=== PATIENT | female | born 1965 | race Caucasian/White ===

== ENCOUNTER 2018-05-02 09:11 | Emergency (ER) | payer BC ==
--- OUTSIDE RECORDS SUMMARY | 2018-05-02 09:31 | XMS REPORT ---
:1965 External Reference #:[id number] Author Organization [employer] Address [address] [place] [address] Phone [phone] Care Team Providers Name Role Phone Tera Strauss M.D. Primary Care Physician Unavailable Payers Type Date Identification Numbers Payment Provider Subscriber Commercial Policy Number: [id number] BS [employer] Norah Zacarias PayID: [id number] [address] [address] [place] [address] Problems Date Description Provider Status Onset: Sinusitis Active Onset: Irritable bowel syndrome Active Onset: 04/02/2018 Presbyopia Rosaura West O.D. Active Onset: 04/02/2018 Regular astigmatism Rosaura West O.D. Active Onset: 04/02/2018 Myopia Rosaura West O.D. Active Onset: 03/13/2016 Horseshoe retinal tear without Jennifer Alvarado O.D. Active detachment Onset: 03/13/2016 Vitreous degeneration Jennifer Alvarado O.D. Active Onset: 03/14/2015 Pseudophakia Jennifer Alvarado O.D. Active Onset: 03/14/2015 After-cataract with vision obscured Jennifer Alvarado O.D. Active Family History Date Family Member(s) Problem(s) Comments Father Cataract Mother No Current Problems Social History Type Date Description Comments Marital Status Legal Status: Occupation [employer] Work Status Retired ETOH Use Denies alcohol use Smoking Patient has never smoked Recreational Drug Use Denies Drug Use Daily Caffeine Consumes on average 1 cup of regular coffee per day Allergies, Adverse Reactions, Alerts Date Description Reaction Status Severity Comments 03/14/2015 NKDA active Medications Medication Date Status Form Strength Qnty SIG Indications Ordering Provider Sudafed Nasal Active Tablets 30mg as needed Unknown Decongestant 00 Maximum Strength No Active 03/14/20 Hx Unknown Medications 15 - 03/13/20 16 Vital Signs Date Vital Result Comment 03/20/2016 BP Systolic 103 mmHg BP Diastolic 63 mmHg Heart Rate 72 /min Respiratory Rate 16 /min 03/13/2016 BP Systolic 113 mmHg BP Diastolic 68 mmHg Heart Rate 76 /min Respiratory Rate 16 /min Results Description No Information Procedures Date CPT Code Description Status 04/01/2017 72645 Est Patient Comprehensive Exam Completed 03/20/2016 83832 Prophylaxis Of Retinal Detachment, Photocoagulation Completed 03/13/2016 84587 Est Patient Comprehensive Exam Completed 03/13/2016 06911 Prophylaxis Of Retinal Detachment, Photocoagulation Completed 03/14/2015 65288 Determination Of Refractive State Completed 03/14/2015 87682 New Patient Comprehensive Exam Completed 02/18/2012 28098 Determination Of Refractive State Completed 02/18/2012 54185 Est Patient Comprehensive Exam Completed 08/12/2011 97474 Extracapsular Cataract Extraction W/Intraocular Lens Completed 08/05/2011 23551 Extracapsular Cataract Extraction W/Intraocular Lens Completed 07/28/2011 30171 Ophthalmic Biometry Completed 07/28/2011 14859 Ophthalmic Biometry Completed 07/07/2011 22215 New Patient Comprehensive Exam Completed Plan of Care 04/02/2018 - Rosaura West O.D.H33.311 Horseshoe tear of retina without detachment, right eyeComments:The area in the retina that was treated for a hole /tear looks stable. I do not see any new holes ortears in your retina at this time. If you notice any new flashes of light or a sudden onset of floaters in your vision, please give our office a call immediately to schedule an appointment.Follow up:1 year You can expect to have your eyes dilated at your next visit. If Dr. West orders any additional testing, it may require extra time. We recommend that you bring sunglasses, as dilation drops often make you light sensitive until they wear off. We always recommend you bring someone to drive you home if you are uncomfortable driving with your eyes dilated. If you have any questions before your next visit, feel free to call our office at .H43.812 Vitreous degeneration, bilateralComments:You have a Posterior Vitreous Detachment. If you have any changes in your floaters or flashing lights, please contact this office.H26.493 Other secondary cataract, bilateralComments:There is clouding in the sac that holds your artificial lens in your left eye. When your vision bothers you, Dr. Page will do a laser treatment here in the office to improve your vision.H52.13 Myopia, bilateralComments:You have Myopia, or near sightedness. I have given you a prescription for glasses.H52.223 Regular astigmatism, bilateralComments: Astigmatism is a common vision condition that happens when a person's cornea is not symmetrical. Dr. West has given you a prescription to correct for this.H52.4 Presbyopia
[2018-05-02 09:37] VITALS: BP 117/73
[2018-05-02] MEDS ORDERED: Ketorolac INJ* 30 MG/ML 1 ML VIAL IM ONE (10:22)
--- NOTE | 2018-05-02 10:29 | UC ---
Minor Trauma HPI - HPI Summary HPI Summary: 52 y/o female presents to the urgent care c/o left side rib pain s/p sliding into a tree root while hiking yesterday. After injury she had to walked like 3.5 miles to get her car. Pt reports she has redness and bruising w/ swelling on the left side of her ribs. Rib pain is 8/10 w/ deep breathing and at touch. Pt has take Ibuprofen PO to alleviate symptoms. Last dose taken was at 0330AM. Pt hasn't been able to sleep well. Pt denies fever, SOB, chest pain, abdominal pain. dizziness, N/V/D - History of Current Complaint Chief Complaint: UCGeneralIllness Stated Complaint: FELL HURT RIBS Time Seen by Provider: 05/02/18 10:09 Hx Obtained From: Patient Hx Last Menstrual Period: 03/14 ?: No - Menopausal Onset/Duration: Sudden Onset, Lasting Days - 1 day, Still Present, Worse Since - today Onset Of Pain: Immediate Severity Initially: Moderate Severity Currently: Moderate Pain Intensity: 5 Pain Scale Used: 0-10 Numeric Mechanism Of Injury: Blunt Trauma Aggravating Factor(s): Coughing, Deep Breaths, Movement, Other: - touch Alleviating Factor(s): OTC Meds, Rest Associated Signs And Symptoms: Positive: Swelling, Other: - bruising - Risk Factors Penetrating Injury Risk Factors: Negative - Allergies/Home Medications Allergies/Adverse Reactions: Allergies Allergy/AdvReac Type Severity Reaction Status Date / Time No Known Allergies Allergy Verified 05/02/18 09:37 Home Medications: Home Medications Loratadine 10 mg PO DAILY 05/02/18 [History Confirmed 05/02/18] PMH/Surg Hx/FS Hx/Imm Hx Previously Healthy: Yes Cardiovascular History: Hypertension - Surgical History Surgical History: Yes Surgery Procedure, Year, and Place: c-sections x 3. cataract surgery - Family History Known Family History: Positive: Diabetes - Social History Occupation: Employed Full-time Lives: With Family Alcohol Use: Rare Substance Use Type: None Smoking Status (MU): Former Smoker Type: Cigarettes Length of Time of Smoking/Using Tobacco: quit 16 yo - Immunization History Most Recent Tetanus Shot: up to date Review of Systems Constitutional: Negative Skin: Bruising - and swelling in the left lateral side of chest Eyes: Negative ENT: Negative Respiratory: Negative Cardiovascular: Negative Gastrointestinal: Negative Genitourinary: Negative Motor: Negative Neurovascular: Negative Musculoskeletal: Other: - left side rib pain s/p fall Neurological: Negative Psychological: Negative Is Patient Immunocompromised?: No All Other Systems Reviewed And Are Negative: Yes Physical Exam - Summary Physical Exam Summary: VITAL SIGNS: Reviewed. GENERAL: Patient is a well developed and nourished female who is sitting comfortable in the examining table. Patient is not in any acute respiratory distress. SKIN:Warm and dry HEENT:Head: Normocephalic atraumatic without palpable deformities. Eyes: Pupils equal and reactive to light and accommodation. Extraocular movements intact. No periorbital ecchymosis or step off. Ears: Canals patent. Tympanic membranes are clear. No Battles sign. No hemotympanum. Nose/Face: Atraumatic. Facial bones are nontender to palpation and stable with attemps at manipulation. Mouth/Throat: No intraoral trauma. Teeth and mandibles are intact. NECK:No midline point tenderness, step-off, or deformity to firm palpation of posterior cervical spine. Thrachea midline. Carotids equal. No masses. No JVD. Full range of motion of the neck without limitation or pain. CHEST: left lateral side of ribs 9-12 w/ a hematoma, ecchymosis and mild swelling, tender to palpation without crepitus or deformity. No palpable subcutaneous air. lungs clear to auscultation bilaterally. HEART:Regular rate and rhythm, No murmurs, rub or gallop. S1 and S2 present. ABDOMEN:No abrasions or ecchymosis or surface trauma. No distension. Bowel sounds are active. Nontender to palpation; no guarding, rebound, or rigidity. No masses. BACK: No contusions, ecchymosis, or abrasions are noted. Nontender without step- off or deformity to fiem midline palpation. No CVAT or flank ecchymosis. PELVIS:Nontender to palpation and stable to compression. Femoral pulses strong and equal. EXTREMITIES:No surface trauma. Full range of motion without limitation or pain. Good strength in all extremities. Sensation to light touch intact. All peripheral pulses are intact and equal. NUERO:A&O x4, GCS 15, CN II-XII intact. Motor and sensory exam nonfocal. Reflex are symmetric Triage Information Reviewed: Yes Vital Signs: Initial Vital Signs Temp 98 F 08/05/18 09:34 Pulse 82 05/02/18 09:34 Resp 16 05/02/18 09:34 BP 117/73 05/02/18 09:34 Pulse Ox 99 05/02/18 09:34 Minor Trauma Course/Dx - Course Course Of Treatment: 52 y/o female presents to the urgent care c/o left side rib pain s/p sliding into a tree root while hiking yesterday. After injury she had to walked like 3.5 miles to get her car. Pt reports she has redness and bruising w/ swelling on the left side of her ribs. Rib pain is 8/10 w/ deep breathing and at touch. Pt has take Ibuprofen PO to alleviate symptoms. Last dose taken was at 0330AM. Pt hasn't been able to sleep well. Pt denies fever, SOB, chest pain, abdominal pain. dizziness, N/V/D. Hx obtained. Pt left lateral side of ribs 9-12 w/ a hematoma, ecchymosis and mild swelling, tender to palpation without crepitus or deformity. No palpable subcutaneous air on examination. Left side Rib and PA chest X-ray ordered: Impression:No rib fracture, no pneumothorax. Pt w/ Tib contusiona and hematoma. Pt given toradol IM inj at the clinic by nurse. Pt tolerated well IM inj and pain decrease. Pt explained the importance to perform deep breaths despite pain to avoid atelectasis. PT Rx Naproxen PO and advised to F/u w/ PCP or Orhtopedic Dr Moreno if not improvement of symptoms. D/C instructions explained. pt understood and agreed w/ plan of care. - Differential Dx/Diagnosis Differential Diagnosis/HQI/PQRI: Abrasion(s), Contusion(s), Fracture, Dislocation, Hematoma(s), Sprain, Strain Provider Diagnoses: 1- Left side rib pain s/p fall. 2- Left side contusion w/ hematoma Discharge - Sign-Out/Discharge Documenting (check all that apply): Patient Departure - D/C home - Discharge Plan Condition: Stable Disposition: HOME Prescriptions: Naproxen TAB* [Naprosyn 250 mg TAB*] 250 mg PO Q8H PRN #30 tab PRN Reason: Pain Patient Education Materials: Hematoma (ED), Rib Contusion (ED) Referrals: Maryam Ruiz MD [Primary Care Provider] - 1 Week Geovanna Moreno MD [Medical Doctor] - 1 Week Additional Instructions: 1- Please take Naproxen PO or Tylenol PO as directed after meals for pain. 2- Apply cold compresses around contusion to decrease swelling. 3- Wear a back support. Avoid strenuous exercise of heavy lifting. 4- Please follow up with Orthopedic Dr Moreno or your PCP in 1 week if not improvement of symptoms, for further management. - Billing Disposition and Condition Condition: STABLE Disposition: Home
--- NOTE | 2018-05-02 10:54 | RAD ---
Indication: Left rib pain after fall 3 views of left ribs as well as dual energy PA views of the chest are reviewed. No definite fracture of the left ribs is identified. No other bone or joint abnormality is identified. No pneumothorax is noted. There may be some minimal atelectasis in the left lung base. IMPRESSION: No rib fracture is noted. No pneumothorax is identified.
== END 2018-05-02 11:23 | disposition home or self-care (01) ==
LOC: UCEAST 09:11
DX: S20.212A Contusion of left front wall of thorax, initial encounter (principal); W22.09XA Striking against other stationary object, initial encounter; Y93.01 Activity, walking, marching and hiking; Y92.9 Unspecified place or not applicable; R07.81 Pleurodynia; Z83.3 Family history of diabetes mellitus; Z87.891 Personal history of nicotine dependence
CPT/HCPCS: 96372; 99212; G0463; J1885